=== PATIENT | female | born 1990 | race Caucasian/White ===

== ENCOUNTER → 2022-02-18 | Outpatient (CLI) | payer BC, SELFPAY ==
[2022-03-03 15:13] LABS: HPV APTIMA, High Risk Negative (Negative)
== END | disposition home or self-care (01) ==
LOC: LABSPEC 11:32
PROVIDERS: Visit Provider Obstetrics & Gynecology
DX: Z12.4 Encounter for screening for malignant neoplasm of cervix (principal)
CPT/HCPCS: 87624; 88175; G0145

== ENCOUNTER 2023-06-09 10:30 | Outpatient (RCR) | payer BC, SELFPAY ==
--- NOTE | 2023-05-12 10:48 | HP.PTEVAL ---
Patient's Visit Information Visit Information Visit Information: MARIA ISABEL ADHIKARI is a 33 year old F referred to Physical Therapy by Dr. Oscar Francis DPM with a diagnosis of PLANTAR FASCIA. Date of Evaluation: 05/12/23 Physical Therapist: Jose Tompkins, PT, Cert MDT, OCS Visit Plan Frequency: 5x /Week Duration: 4 Weeks Plan: PT INTERVENTIONS FLEXABLITY G-S/PLANTAR FASCIA ,MANUAL THERAPY STM/HAWK PF/CALANEUOUS ,AND US /CP Subjective Subjective: This 33 y/o female presents to physical therapy with plantar fasciitis . Patient has pain plantar fascia left > right ~ [address] Francis tried cortisone injection . Patient has tried orthotics and night splint . Patient pain located heel plantar aspect. 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 Alleviating factors rest ,ice. C/O paresthesia/tingling in feet. Patient pain doesn't sleep patient. Patient had x-rays showed spurs. Patient condition affects QOL and function with job demands. Patient goals to decrease pain,. SOCIAL; single VOCATION: restorative aide Pain Left Foot: Pain Intensity (Out of 10): 7 Right Foot: Pain Intensity (Out of 10): 3 Pain Intensity Range: 10 Objective Objective: POSTURE: ( frontal plane) pes Cavus right > left decrease arch on left side PALAPTION: left calcaneal > right NEURO: denies paresthesia/tingling GAIT: reciprocal pattern AROM: dorsiflexion 5 degrees ,plantar flexion 65 degrees ,inversion 45 degrees ,eversion 5 degrees , GTE 25 degrees MMT: grossly 5/5 FLEXABILITY: mild tight MMT: Balance/Special Test Scores Lower Extremity Functional Score: 45 Goals Goal 1:: Patient to be I with HEP for PF Goal Time Frame: 4-6 Weeks Goal 2:: Patient to demonstrate 50-60% improvement with less pain and improved job demands Goal Time Frame: 4-6 Weeks Goal 3:: Patient to improve LFES score by 5 -10 points to improve QOL and function. Goal Time Frame: 4-6 Weeks Goal 4:: Patient be able to work and stand for extended period to perform job demands with less pain Goal Time Frame: 4-6 Weeks Rehabilitation Potential Physical Therapy Diagnosis: This patient has plantar fascia pain left > right with pes Cavus but decrease arch on left with pain during pain calcaneus deficits with walking and standing affects job demands and housework task thus benefit from skilled PT Rehabilitation Potential: Good Anticipated Interventions Patient/Client Instruction: Educate patient on: Condition and Plan of Care For the Purpose of:: To decrease pain, To increase ROM, To improve muscle performance and motor function, To increase tolerance to activity/condition/position, To improve ability of physical actions for home/community/work/leisure, To improve health of tissue, To decrease soft tissue restriction, To increase flexibility/ROM and To reduce risk of recurrence Therapeutic Exercise to Include: Strength training, Flexibilty training and Active ROM Comment: PF For the Purpose of:: To decrease pain, To decrease swelling/inflammation, To increase ROM, To improve nutrient delivery to tissue, To increase oxygenation perfusion, To improve muscle performance and motor function, To improve ability of physical actions for home/community/work/leisure, To improve health of tissue, To decrease soft tissue restriction and To increase flexibility/ROM TENS: Yes IF ES: Yes Cryotherapy (ice pack, ice massage): Yes Thermo therapy (hot pack): Yes Ultrasound (thermal/non thermal): Yes For the Purpose of:: To decrease pain, To increase ROM, To improve nutrient delivery to tissue, To increase oxygenation perfusion, To improve health of tissue and To decrease soft tissue restriction Text: Thank you for the opportunity to evaluate your patient. For Medicare and Medicare HMO plans, please review the plan of care and approve it. It will need to be FAXED BACK to us at [phone] for Medicare purposes. For Medicare only, by signing this I certify the plan of care. Please let me know if there are questions or concerns regarding this plan of care. Physician Signature: Date:
--- NOTE | 2023-07-27 15:34 | HP.PTDCSUM ---
Discharge Summary D/C summary: It has been my pleasure to treat MARIA ISABEL ADHIKARI referred by Dr. Oscar Francis DPM, with the diagnosis of PLANTAR FASCIA for a total of 9 visit(s). Discharge Date: Please see the following information for a summary of their discharge status. Subjective Subjective: Doing some better.. Pain Left Foot: Pain Intensity (Out of 10): 5 Right Foot: Pain Intensity (Out of 10): 1 Overall Improvement % Improvement: 70 Objective Objective/Function: Continues to be tender with STM to Left arch. Patient reports decreased pain following session. Goals Goal 1:: Patient to be I with HEP for PF Goal 2:: Patient to demonstrate 50-60% improvement with less pain and improved job demands Goal 3:: Patient to improve LFES score by 5 -10 points to improve QOL and function. Goal 4:: Patient be able to work and stand for extended period to perform job demands with less pain Plan Plan: RTD D/C Information d/c sentence: If there are questions or concerns regarding this patient's physical therapy, please feel free to call me at [phone]. Thank you for the referral of this patient. Sincerely, Jose Tompkins, PT, Cert MDT, OCS Balance/Gait/Functional tests Balance/Special Test Scores Lower Extremity Functional Score: 45 Improvement % Improvement: 70
== END 2023-06-09 19:00 | disposition home or self-care (01) ==
LOC: PT 10:30
PROVIDERS: PCP Family Medicine; Referring Provider Podiatrist; Visit Provider Podiatrist
DX: M72.2 Plantar fascial fibromatosis (principal)
CPT/HCPCS: 97035; 97140; 97161; 97530

== ENCOUNTER 2024-02-10 11:30 | Outpatient (RCR) | payer OTHER, SELFPAY ==
--- NOTE | 2023-12-14 16:25 | HP.PTEVAL_ITS ---
Patient's Visit Information Visit Information Visit Information: MARIA ISABEL ADHIKARI is a 33 year old F referred to Physical Therapy by Dr. Oscar Francis DPM with a diagnosis of RIGHT ACHILLES TENDONITIS. Date of Evaluation: 12/14/23 Physical Therapist: Jose Tompkins, PT, Cert MDT, OCS Visit Plan Frequency: 2x /Week Duration: 4 Weeks Plan: PT INTERVENTIONS MANUAL THERAPY CALF /ACHILLES ,FLEXABILITY G-S ,US AND ECCENTRIC STRENGTH ACHILLES Subjective Subjective: This 33 y/o female presents to physical therapy with right achilles tendonitis. Patient developed achilles tendonitis ~ 1 month no predisposing factor. Location deltoid tuberosity x-rays plantar calcaneal enthesophyte and Poli's deformity . Tried dosage Medrol Pack for inflammation. Aggravating factors walking/standing ,AM when getting OOB . Alleviating stretching. Denies paresthesia/tingling. Patient sleeping good. Patient pain affects QOL and function with gait. Patient goals to decrease pain SOCIAL: single VOCATION : [employer] Pain Right Ankle: Pain Intensity (Out of 10): 4 Pain Intensity Range: 10 Comment: 01/12 Objective Objective: POSTURE: frontal plane mechanics pes planus left > right side PALPATION: tender deltoid tuberosity insertion of achilles GAIT: reciprocal pattern mild decrease stance time right LE NEURO: denies paresthesia/tingling AROM: ankle DF 0 degrees ,plantarflexion 65 degrees ,inversion 40 degrees ,eversion 5 degrees MMT: ankle anterior tibialis ,peroneus 4/5 ,posterior tibialis 4/5 ,G-S 4/5 ,mild pain G-S FLEXABILITY : min tight Balance/Special Test Scores Lower Extremity Functional Score: 43 Goals Goal 1:: Patient to be I with HEP for ankle Goal Time Frame: 4-6 Weeks Goal 2:: Patient to improve dorsiflexion by 5 degrees to improve gait Goal Time Frame: 4-6 Weeks Goal 3:: Patient to demonstrate 50% improvement with less pain and improved function with gait Goal Time Frame: 4-6 Weeks Goal 4:: Patient to improve LFES score by 5-10 points to improve QOL and function Goal Time Frame: 4-6 Weeks Goal 5:: Patient to normalize gait pattern Goal Time Frame: 4-6 Weeks Rehabilitation Potential Physical Therapy Diagnosis: This patient has achilles tendonitis with calcaneal enthesophyte with pain with walking/standing in morning thus benefit from skilled PT Rehabilitation Potential: Good Anticipated Interventions Patient/Client Instruction: Educate patient on: Condition and Plan of Care For the Purpose of:: To decrease pain, To increase ROM, To improve muscle performance and motor function, To increase tolerance to activity/condition/position, To improve ability of physical actions for home/community/work/leisure, To improve gait and locomotor functions, To improve health of tissue, To decrease soft tissue restriction, To increase flexibility/ROM, To improve endurance and To reduce risk of recurrence Therapeutic Exercise to Include: Strength training, Balance training, Flexibilty training and Active ROM Comment: ANKLE For the Purpose of:: To decrease pain, To increase ROM, To improve nutrient delivery to tissue, To increase oxygenation perfusion, To improve health of tissue, To decrease soft tissue restriction and To increase flexibility/ROM Manual Therapy Techniques to Include: Mobilization and Soft tissue mobilization For the Purpose of:: To decrease pain, To increase ROM, To improve nutrient delivery to tissue, To increase oxygenation perfusion, To improve health of tissue, To decrease soft tissue restriction and To increase flexibility/ROM Cryotherapy (ice pack, ice massage): Yes Thermo therapy (hot pack): Yes Ultrasound (thermal/non thermal): Yes For the Purpose of:: To decrease pain, To increase ROM, To improve nutrient delivery to tissue, To increase oxygenation perfusion, To improve health of tissue and To decrease soft tissue restriction Text: Thank you for the opportunity to evaluate your patient. For Medicare and Medicare HMO plans, please review the plan of care and approve it. It will need to be FAXED BACK to us at [phone] for Medicare purposes. For Medicare only, by signing this I certify the plan of care. Please let me know if there are questions or concerns regarding this plan of care. Physician Signature: Date:
--- NOTE | 2024-02-10 12:11 | HP.PTDCSUM ---
Discharge Summary D/C summary: It has been my pleasure to treat MARIA ISABEL ADHIKARI referred by Dr. Oscar Francis DPM, with the diagnosis of RIGHT ACHILLES TENDONITIS for a total of 8 visit(s). Discharge Date: 02/10/24 Please see the following information for a summary of their discharge status. Subjective Subjective: Doing okay with stretching pain is more sore last week hiking Pain Right Ankle: Pain Intensity (Out of 10): 4 Overall Improvement % Improvement: 75 Objective Objective/Function: POSTURE: frontal plane mechanics pes planus left > right side PALPATION: un GAIT: reciprocal pattern mild decrease stance time right NEURO: denies paresthesia/tingling AROM: ankle DF 5 degrees ,plantarflexion 65 degrees ,inversion 40 degrees ,eversion 5 degrees MMT: ankle anterior tibialis ,peroneus 4/5 ,posterior tibialis 4/5 ,G-S 4/5 ,mild pain G-S FLEXABILITY : min tight Goals Goal 1:: Patient to be I with HEP for ankle Goal Progress: Goal Met Goal 2:: Patient to improve dorsiflexion by 5 degrees to improve gait Goal Progress: Goal Met Goal 3:: Patient to demonstrate 50% improvement with less pain and improved function with gait Goal Progress: Goal Met Goal 4:: Patient to improve LFES score by 5-10 points to improve QOL and function Goal Progress: Goal Met Goal 5:: Patient to normalize gait pattern Goal Progress: Goal Met Plan Plan: D/C D/C Information Discharge Comments: HEP d/c sentence: If there are questions or concerns regarding this patient's physical therapy, please feel free to call me at [phone]. Thank you for the referral of this patient. Sincerely, Jose Tompkins, PT, Cert MDT, OCS Balance/Gait/Functional tests Balance/Special Test Scores Lower Extremity Functional Score: 63 Improvement % Improvement: 75
== END 2024-02-10 19:00 | disposition home or self-care (01) ==
LOC: PT 11:30
PROVIDERS: PCP Family Medicine; Referring Provider Podiatrist; Visit Provider Podiatrist
DX: M76.61 Achilles tendinitis, right leg (principal)
CPT/HCPCS: 97035; 97110; 97140; 97161; 97530